=== PATIENT | female | born 1975 | race Hispanic/Latino ===

== ENCOUNTER 2016-09-17 20:01 | Emergency (ER) | payer OTHER ==
[~2016-09-17 20:01] MED LIST: IBUP-1149 PO; TYL325 PO; VICODIN 5-3251 EACH PO
[2016-09-17 20:06] VITALS: BP 197/126; PULSE 106; RESP 16; O2SAT 98
--- NOTE | 2016-09-17 20:20 | ED.REPORT ---
HPI-Dyspnea / Wheezing Date of Service Sep 17, 2016 ED Provider: Ryan Burk MD The patient is a 41 year old female with a medical history including UTI, migraines, anxiety, and hypertension who presents to the ED with shortness of breath after inhaling chemical debris while cleaning a chrome oven at work around 18:30 this evening. Associated symptoms include lightheadedness, throat irritation, cough, and right-sided chest pain. The patient denies other symptoms. She was found to be hypertensive at 197/126 in triage and denies taking hypertension medications regularly. Nursing Notes Stated Complaint: INHALED DEBRI FROM AN OVEN AT WORK L&I Chief Complaint: Respiratory Complaints Nursing Notes Reviewed: Yes Allergies: Coded Allergies: hydromorphone (Verified Allergy, Unknown, Chest pain, 09/17/16) Scheduled Acetaminophen-Expunged Drug, Do Not Renew! (Tylenol-Expunged Drug, Do Not Renew! ) 325 Mg Tablet 325-650 MG PO PRN Hydrocod/APAP-Expunged, Do Not Renew! (VICODIN 5/325-Expunged Drug, Do Not Renew ) 1 Each Tablet 1-2 TAB PO Q6HP IBUPROFEN-Expunged Drug, Do Not Renew! (IBUPROFEN-Expunged Drug, Do Not Renew!) 600 Mg Tablet 600 MG PO PRN FOR FEVER OR PAIN General Time Seen by MD: 20:19 Chief Complaint Shortness of breath Hx Obtained From: Patient Arrived By: Walk-in Sudden in Onset?: Yes Onset Occurred: 1 - 4 hours ago Context of Onset: Exposure, chemical Symptom Duration: Since onset Location: : Chest right Quality: Painful Severity: Current: Moderate Severity: Maximum: Moderate Pertinent Negative: Relieved by nothing Context Related History: Reports: Anxiety, Coronary artery disease Recent Healthcare: No recent doctor visit Past Medical History Past Medical History Notes: Previous procedure note indicates coronary artery disease, with prior stent to the LAD but patient adamantly denies this Past Medical History History of bladder infections and reported kidney infection Migraine headaches. Anxiety. Depression. Varicose veins in both lower extremities. History of chlamydia. 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 Left ovarian cyst s/p laparoscopic left ovarian cystectomy Reports: Hypertension Past Surgical History Laparoscopic left ovarian cystectomy. Reports: Tubal ligation Smoking History Never Smoker Social History Other Social History: Good social support, Local resident Occupation Works at [employer] Status Independent Review of Systems Constitutional: Denies: Fever Ears / Nose / Throat: Reports: Throat pain (Irritation) Respiratory: Reports: Non-productive cough, Shortness of breath Cardiovascular: Reports: Chest pain (Right-sided) Complete sys rev & neg: except as marked. GI: Denies: Diarrhea, Vomiting Neurologic: Reports: Lightheaded Physical Exam Initial Vital Signs Vital Signs (First) Date Time Temp Pulse Resp B/P Pulse Ox O2 Delivery O2 Flow Rate FiO2 09/17/16 20:06 36.4 106 16 197/126 98 Room Air Initial VS: Reviewed Head / Eyes: Atraumatic, Normocephalic Skin: Warm, Dry, No cyanosis Neurologic: Alert, Oriented, Nonfocal Psychiatric: Mood/affect normal, Behavior normal, Normal thought content General/Constitutional: Awake, Alert, No acute distress Neck: Atraumatic, Supple, Full range of motion, No swelling, Non-tender Respiratory / Chest: Breath sounds NL, Breath sounds = bilat, No respiratory distress Cardiovascular: Heart rate NL, Regular rhythm, Heart sounds NL ENT: Airway patent, Mucous membranes moist, Pharynx NL, Tympanic membs NL, Ext aud canal NL Voice hoarse Interpretation & Diagnostics X-Ray Chest Interpretation Chest Xray Interpretation: IMPRESSION: No acute cardiopulmonary disease. Dictated by: Ana Brumfield M.D. on 09/17/2016 at 21:10 View: AP & lat Interpretation / Wet Read by: Interpret - Radiologist Re-Eval/Medical Decision Source of Hx: Old records Re-Evaluation/Progress #1: Time of Eval: 21:30 Patient Status: Condition improved Re-Evaluation/Progress Note: Patient rechecked. Discussed with patient x-ray results. Additional history obtained. Her blood pressure is 204/106. Discussed with patient diagnosis and plan for discharge. Follow-up and return to the ER instructions given. Patient agrees with plan for care and all questions were addressed. Re-Evaluation/Progress #2: Time of Eval: 22:18 Re-Evaluation/Progress Note: Patient was found to be too hypertensive to discharge home. Will administer medication and recheck. Re-Evaluation/Progress #3: Time of Eval: 22:37 Patient Status: Condition improved Re-Evaluation/Progress Note: Discussed past medical history. Previous procedure note indicates coronary artery disease, with prior stent to the LAD but patient adamantly denies this Re-Evaluation/Progress #4: Time of Eval: 22:56 Patient Status: Condition improved Re-Evaluation/Progress Note: Patient's BP has improved. She agrees with discharge. Counseled Regarding: Diagnosis, Need for follow-up, When/why to return to ED Discharge & Departure Impression: Primary Impression: Toxic inhalation injury Encounter type: initial encounter Injury intent: accidental or unintentional Qualified Code: T59.91XA - Toxic effect of unspecified gases, fumes and vapors, accidental (unintentional), initial encounter Additional Impression: Hypertension Disposition: Home Discharge Condition All VS Reviewed: Yes Condition: Improved Patient Instructions: Smoke Inhalation (ED) Additional Instructions: Thank you for entrusting us with your care. Your exam today was reassuring. Your chest x-ray was normal. Keep an empty bottle of the cleaning materials you used for identification of the chemical in future visits. If you are breathing does not feel back to normal, follow-up with your doctor about this next week, sooner if worse. Check your blood pressure once daily, after sitting calmly for 5 minutes. Keep note of the date and time. Call your primary care provider tomorrow for a follow-up appointment next week for blood pressure and possibly your breathing. Return to the ER with any new or worsening symptoms including blurred vision, severe headache, or chest pain. Referrals: [facility] (PCP) Scribe Attestation Portions of this note were transcribed by Genia Perez. I, Dr. Burk, personally performed the history, physical exam, and medical decision-making; I reviewed and confirmed the accuracy of the information in the transcribed note. Signed by: Kelsi Baldwin, 09/17/2016, 22:25 copies to: [facility] Ryan Burk MD Sep 17, 2016 20:20 GENIA PEREZ Sep 17, 2016 21:31
--- NOTE | 2016-09-17 21:13 | DRSVH ---
PROCEDURE: X-RAY CHEST, TWO VIEWS ([id number]) INDICATIONS: SHORTNESS OF BREATH TECHNIQUE: 2 views of the chest were acquired. COMPARISON: [facility], CR, CHEST 1VW (PORTABLE), 09/16/2011, 4:46. [facility] al, CR, CHEST 1VW (PORTABLE), 05/21/2013, 2:13. [facility], CR, XR CHEST 1VW (PORTABLE), 02/15/2016, 23:17. FINDINGS: Surgical changes and devices: None. Lungs and pleura: There is a partially calcified density projecting to the right lower lung zone, pr obably caused by an artifact from costochondral calcination. Lungs are otherwise clear. No pleural e ffusions or pneumothorax. Mediastinum: Mediastinal contours are normal. Heart size is normal. Bones and chest wall: No suspicious bony abnormalities. Soft tissues appear unremarkable. IMPRESSION: No acute cardiopulmonary disease. Dictated by: Ana Brumfield M.D. on 09/17/2016 at 21:10 Approved by: Ana Brumfield M.D. on 09/17/2016 at 21:11
[2016-09-17] MEDS ORDERED: LidocaineVisc 2%:Antacid 1:1 10 mL Syringe PO ONE (21:50)
[2016-09-17] MEDS ORDERED: LORazepam 2 mg Tablet PO ONE (22:15)
[2016-09-17 23:09] VITALS: BP 180/105; PULSE 100; RESP 16; O2SAT 96
== END 2016-09-17 23:11 | disposition home or self-care (01) ==
LOC: SED 20:01
DX: T59.91XA Toxic effect of unspecified gases, fumes and vapors, accidental (unintentional), initial encounter (principal); X58.XXXA Exposure to other specified factors, initial encounter; Y92.59 Other trade areas as the place of occurrence of the external cause; Y93.G1 Activity, food preparation and clean up; Y99.0 Civilian activity done for income or pay; I10 Essential (primary) hypertension; R06.02 Shortness of breath; R42 Dizziness and giddiness; R07.0 Pain in throat; R05 Cough; R07.9 Chest pain, unspecified; R49.0 Dysphonia; F41.9 Anxiety disorder, unspecified; G43.909 Migraine, unspecified, not intractable, without status migrainosus; F32.9 Major depressive disorder, single episode, unspecified; Z87.440 Personal history of urinary (tract) infections; Z88.5 Allergy status to narcotic agent